=== PATIENT | male | born 1970 | race Caucasian/White ===

== ENCOUNTER 2017-05-21 04:55 | Emergency (ER) | payer SELFPAY ==
[~2017-05-21] VITALS: Ht 170.2 cm; Wt 80.1 kg
[2017-05-21 04:59] VITALS: Ht 170.2 cm; Wt 80.1 kg
[2017-05-21] MEDS ORDERED: morphine 4 MG/ML VIAL IM STA (05:13)
[2017-05-21] MEDS ORDERED: IBUP-1542 PO (05:14)
[2017-05-21] MEDS ORDERED: HYDR-906 PO (05:14)
--- NOTE | 2017-05-21 05:27 | ERD ---
ER Documentation Chief Complaint Chief Complaint chronic L knee pain x 1 yr; has pending ortho appt this may 46-year-old male presents here to emergency department for complaints of left knee pain, patient has history of chronic left knee pain from a meniscus injury , patient is waiting for authorization for surgery. Patient ran out of his medication for pain. Patient denies any reinjury. Patient describes the pain as throbbing pain, succession scale, as was upon movement. Patient denies any numbness or tingling. Patient denies any deformity. Patient denies any fever or chills. ROS All systems reviewed and are negative except as per history of present illness. Medications Home Meds Active Scripts Ibuprofen* (Motrin*) 600 Mg Tab, 600 MG PO Q6H Y for PAIN AND OR ELEVATED TEMP, #30 TAB Prov:WILDER WEIR HYDROTECH[employer]ICAL SPECIALIST 05/21/17 Hydrocodone/Acetaminophen ([place] 5-325 Tablet) 1 Each Tablet, 1 TAB PO Q6H Y for SEVERE PAIN LEVEL 7-10, #20 TAB Prov:WILDER WEIR HY[employer]OTECHNICAL SPECIALIST 05/21/17 Reported Medications [None] No Conflict Check 01/16/10 Allergies Allergies: Coded Allergies: penicillin G (Verified Allergy, Unknown, 05/21/17) PMhx/Soc Medical and Surgical Hx: pt denies Medical Hx History of Surgery: Yes (appendectomy) Anesthesia Reaction: No Hx Neurological Disorder: No Hx Respiratory Disorders: No Hx Cardiac Disorders: No Hx Psychiatric Problems: No Hx Miscellaneous Medical Probl: No Hx Alcohol Use: Yes (SOCIALLY) Hx Substance Use: No Hx Tobacco Use: No FmHx Family History: No coronary disease, No diabetes, No other Physical Exam Vitals Vital Signs Date Time Temp Pulse Resp B/P Pulse Ox O2 Delivery O2 Flow Rate FiO2 05/21/17 04:59 98.4 91 20 137/82 100 Physical Exam GENERAL: The patient is well developed and appropriate for usual state of health, in no apparent distress. CHEST: Clear to auscultation bilaterally. There are no rales, wheezes or rhonchi. HEART: Regular rate and rhythm. No murmurs, clicks, rubs or gallops. No S3 or S4. ABDOMEN: Soft, nontender and nondistended. Good bowel sounds. No rebound or guarding. No gross peritonitis. No gross organomegaly or masses. No Reeves sign or McBurney point tenderness. BACK: No midline or flank tenderness. EXTREMITIES: Able to do full range of motion of the left knee without any restriction, no redness or swelling noted. Equal pulses bilaterally. There is no peripheral clubbing, cyanosis or edema. No focal swelling or erythema. Full range of motion. Grossly neurovascularly intact. NEURO: Alert and oriented. Cranial nerves 2-12 intact. Motor strength in all 4 extremities with 5/5 strength. Sensation grossly intact. Normal speech and gait. SKIN: There is no apparent rash or petechia. The skin is warm and dry. HEMATOLOGIC AND LYMPHATIC: There is no evidence of excessive bruising or lymphedema. No gross cervical, axillary, or inguinal lymphadenopathy. Results 24 hrs Current Medications Medications (Trade) Dose Ordered Sig/Can Route PRN Reason Start Time Stop Time Status Last Admin Dose Admin Morphine Sulfate (morphine) 4 mg ONCE STAT IM 05/21/17 05:13 05/21/17 05:14 DC Ibuprofen (Motrin) 600 mg ONCE ONCE PO 05/21/17 05:30 05/21/17 05:31 Patient was given medication for pain here in emergency department, after treatment, patient verbalized feeling much better. Patient's pain is improved. A knee immobilizer splint was applied on the patients left knee. After application of the splint, patient has intact sensation and circulation on distal area of the affected joint. Patient does not complain of numbness or tingling after application of the splint. Patient tolerated procedure well. Procedures/MDM Medical Decision Making: Patient's pain is most likely consistent with chronic knee pain caused by meniscus injury. There is no suspicion for neurovascular compromise. Patient has intact sensation and circulation of the affected extremity. There is low suspicion for septic arthritis. Patient does not have any fever. Radiology exams not indicated at this time. No reinjury happened. Patient already has a pending appointment with orthopedic surgeon for repair of meniscus Disposition: Home. Patient is given prescription for ibuprofen for pain [place] for severe pain. Patient was advised to elevate the affected area and apply ice on affected area. Patient was advised that if symptoms are worse, numbness, tingling, high fever, unable to move joint, worsening symptoms, to return to emergency department immediately. Otherwise, patient is advised to follow up with the primary care doctor in 5-7 days for reevaluation of symptoms. Disclaimer: Inadvertent spelling and grammatical errors are likely due to EHR/ dictation software use and do not reflect on the overall quality of patient care. Also, please note that the electronic time recorded on this note does not necessarily reflect the actual time of the patient encounter. Departure Diagnosis: Primary Impression: Knee pain Chronicity: chronic Laterality: left Qualified Code: M25.562 - Chronic pain of left knee Condition: Stable Patient Instructions: Knee Pain, Meniscus Injury (Possible) WILDER WEIR NP May 21, 2017 05:27
[2017-05-21] MEDS ORDERED: IBUPROFEN 600 MG TAB PO ONE (05:30)
[2017-05-21] MEDS ORDERED: ONDANSETRON (ODT) 4 MG TAB ODT STA (05:34)
== END 2017-05-21 06:00 | disposition home or self-care (01) ==
LOC: FTE 04:55
DX: M25.562 Pain in left knee (principal)
CPT/HCPCS: 29505; 96372; 99284; J2270